=== PATIENT | male | born 1975 | race Asian ===

== ENCOUNTER 2018-06-27 10:00 | Outpatient (CLI) | payer MEDICAID ==
[~2018-06-27 10:00] MED LIST: HYDR-3965 PO
[2018-06-27 10:02] VITALS: BP 140/99
== END 2018-06-27 10:45 | disposition home or self-care (01) ==
LOC: ORTHO 10:00
PROVIDERS: ATTEND Orthopaedic Surgery
DX: S82.832A Other fracture of upper and lower end of left fibula, initial encounter for closed fracture (principal); Z91.81 History of falling; Z98.890 Other specified postprocedural states; V00.131A Fall from skateboard, initial encounter; Y93.89 Activity, other specified; Y92.89 Other specified places as the place of occurrence of the external cause; Y99.8 Other external cause status
CPT/HCPCS: 29515; 73610; G0463